=== PATIENT | male | born 1965 | race Caucasian/White ===

== ENCOUNTER 2017-01-09 20:19 | Emergency (ER) | payer OTHER ==
[~2017-01-09] VITALS: Ht 180.3 cm; Wt 85.0 kg
[~2017-01-09 20:19] MED LIST: AMOX875T3 PO; AMT50 PO; ATR25 PO; BSP15 PO; CARB1CAP10 PO; CARB1CAP11 PO; CLX20 PO; DIAZ-165 PO; ESCI10TA17 PO; HYDR-5688 PO; MELO15TA3 PO; NRN600 PO
[2017-01-09 20:29] VITALS: Ht 180.3 cm; Wt 85.0 kg
[2017-01-09] MEDS ORDERED: SODIUM CHLORIDE 0.9% 1000ML 1,000 ML IV SCH (20:43)
--- NOTE | 2017-01-09 21:00 | DIAGNOSTIC IMAGING REPORT ---
CT SCAN OF THE BRAIN WITHOUT IV CONTRAST CLINICAL HISTORY: Strokelike symptoms. COMPARISON STUDY: CT of the brain dated 03/23/2009. TECHNIQUE: Unenhanced axial CT scan of the brain is performed from the vertex to the skull base. A dose lowering technique was utilized adhering to the principles of ALARA. CT DOSE: 614.27 mGy.cm FINDINGS: Brain parenchyma: The brain parenchyma is normal in appearance. There is no hemorrhage, mass effect, or evidence of acute territorial ischemia by CT criteria. Mccurdy-white matter is preserved. No extra-axial fluid collection is seen. Ventricles, sulci, cisterns: Normal in configuration. Intracranial vasculature: The visualized intracranial vasculature at the skull base is normal in appearance. Calvarium: Unremarkable. Sinuses and mastoids: Trace mucosal thickening is seen in the maxillary antra. The remaining paranasal sinuses are clear. The mastoid air cells are well pneumatized. Orbits: The bony orbits are grossly intact. IMPRESSION: There is no hemorrhage, mass effect, or evidence of acute territorial ischemia by CT criteria. Electronically signed by: Alf Cabrales M.D. 01/09/2017 8:58 PM Dictated Date/Time: 01/09/2017 8:56 PM
[2017-01-09] MEDS ORDERED: IBUP600T44 PO (21:04)
[2017-01-09] MEDS ORDERED: PRLSR20 PO (21:04)
[2017-01-09] MEDS ORDERED: ONDANSETRON INJ 2 MG/ML 2 ML VIAL ONE (21:08)
[2017-01-09 21:15] VITALS: O2SAT 97
[2017-01-09 21:22] LABS: BASO % 0.4 %; BASO ABS # 0.07 K/uL (0-0.2); COMPLETE YES; EOS % 0.7 %; HEMATOCRIT 47.2 % (42-52); IG% 0.3 %; LYMPH % 7.6 %; MEAN CELL VOLUME 93.7 fL (80-100); MEAN CORPUSCULAR HEMOGLOBIN 34.3 pg (25-34); MEAN CORPUSCULAR HGB CONC 36.7 g/dl (32-36); MEAN PLATELET VOLUME 9.9 fL (7.4-10.4); MONO % 3.4 %; NEUT % 87.6 %; PLATELET COUNT 339 K/uL (130-400); RED BLOOD COUNT 5.04 M/uL (4.7-6.1); WHITE BLOOD COUNT 18.42 K/uL (4.8-10.8)
--- NOTE | 2017-01-09 21:27 | DIAGNOSTIC IMAGING REPORT ---
SINGLE VIEW CHEST CLINICAL HISTORY: Strokelike symptoms. FINDINGS: An AP, portable, upright chest radiograph is compared to study dated 03/23/2009 and correlated with chest CT dated 03/24/2009. The examination is degraded by portable technique and patient rotation. The heart is top normal for projection. The pulmonary vasculature is noncongested. Nonspecific interstitial thickening and mild elevation of right hemidiaphragm are similar to previous. No airspace consolidation, large pleural effusion, or pneumothorax is seen. The bony thorax is grossly intact. IMPRESSION: No acute cardiopulmonary abnormality. Electronically signed by: Alf Cabrales M.D. 01/09/2017 9:26 PM Dictated Date/Time: 01/09/2017 9:25 PM
[2017-01-09 21:35] LABS: INR 1.1 (0.9-1.1); PROTHROMBIN TIME (PATIENT) 11.4 SECONDS (9.0-12.0)
[2017-01-09 21:44] LABS: BLOOD UREA NITROGEN 8 mg/dl (7-18); BUN/CREATININE RATIO 8.1 (10-20); CALCIUM 9.6 mg/dl (8.5-10.1); CARBON DIOXIDE 23 mmol/L (21-32); CHLORIDE 103 mmol/L (98-107); CREATININE 1.03 mg/dl (0.60-1.40); GLUCOSE 162 mg/dl (70-99); POTASSIUM 3.6 mmol/L (3.5-5.1); SODIUM 136 mmol/L (136-145)
[2017-01-09 21:49] LABS: CKMB/CK RATIO 1.1 (0-3.0)
[2017-01-09] MEDS ORDERED: SODIUM CHLORIDE 0.9% 1000ML 1,000 ML IV STA (22:19)
[2017-01-09 22:25] LABS: ALKALINE PHOSPHATASE 122 U/L (45-117); ALT/SGPT 25 U/L (12-78); AST/SGOT 22 U/L (15-37)
[2017-01-09 22:37] VITALS: TEMP 36.4
[2017-01-09] MEDS ORDERED: ASPIRIN 81 MG CHEW PO STA (22:45)
[2017-01-09] MEDS ORDERED: OPTIRAY 320 IV PRN (23:00)
--- NOTE | 2017-01-10 00:01 | EMERGENCY ROOM VISIT NOTE ---
History Report prepared by Alejandraibkarol: Leigh Sheldon Under the Supervision of: Dr. Vasquez Steele D.O. First contact with patient: 20:34 Chief Complaint: STROKE SYMPTOMS Stated Complaint: POSSIBLE STROKE History of Present Illness The patient is a 51 year old male who presents to the Emergency Room with complaints of possible stroke symptoms that started at 2114 this evening. He is accompanied by several family members. He admits to a history of previous TIA' s. His son reports he called family this evening and told them he was unable to speak correctly or stand and felt dizzy. His family then called an ambulance. The patients girlfriend reports he recently underwent dental surgery 2 days ago , and was prescribed an antibiotic and pain medicine. The patient currently complains of nausea, a headache and neck pain. He is vomiting on exam. He denies change in vision, fevers, chest pain, shortness of breath, diarrhea, pain with urination, and melena. Patient has no other complaints. He denies any weakness. He denies any paresthesias. Source of History: patient Onset: 2114 this evening Position: other (global) Timing: other (persistent) Associated Symptoms: + headache, + neck pain, + nausea, + vomiting, No fevers, No chest pain, No SOB, No melena, No diarrhea, No urinary symptoms, No weakness, No numbness (no parasthesias) Review of Systems See HPI for pertinent positives & negatives. A total of 10 systems reviewed and were otherwise negative. Past Medical & Surgical Medical Problems: (1) TIA (transient ischemic attack) Social History Smoking Status: Current Every Day Smoker Alcohol Use: occasionally Drug Use: none Marital Status: , in relationship Housing Status: lives with family Occupation Status: employed Current/Historical Medications Scheduled Amoxicillin (Amoxil), 1 TAB PO BID Omeprazole (Prilosec), 20 MG PO DAILY Scheduled PRN Hydrocodone/Acetaminophen 5MG/325MG ([place] 5MG/325MG), 1-2 TABLETS PO Q6 PRN for Pain Ibuprofen (Motrin), 600 MG PO Q6H PRN for Pain Allergies Coded Allergies: No Known Allergies (Verified , `, 01/09/17) Physical Exam Vital Signs Date Time Temp Pulse Resp B/P (MAP) Pulse Ox O2 Delivery O2 Flow Rate FiO2 01/10/17 00:32 56 20 147/88 96 Room Air 01/10/17 00:05 52 16 156/88 97 Room Air 01/09/17 23:02 58 16 150/86 98 Room Air 01/09/17 22:50 46 20 164/74 95 Room Air 01/09/17 22:37 36.4 46 20 133/74 100 Room Air 01/09/17 22:16 45 20 143/70 97 Room Air 01/09/17 21:57 48 18 127/84 98 Room Air 01/09/17 21:41 47 20 161/92 98 Room Air 01/09/17 21:19 52 20 122/66 100 Room Air 01/09/17 21:15 97 Room Air 01/09/17 21:02 44 01/09/17 20:29 36.4 52 20 124/70 99 Room Air Physical Exam GENERAL: Sitting up in bed, alert, diaphoretic, pale, well nourished, no distress, non-toxic EYE EXAM: normal conjunctiva. PERRL and EOM's intact. OROPHARYNX: no exudate, no erythema, lips, buccal mucosa, and tongue normal and mucous membranes are moist NECK: supple, no nuchal rigidity, no adenopathy, non-tender LUNGS: Clear to auscultation. Normal chest wall mechanics HEART: no murmurs, S1 normal and S2 normal ABDOMEN: abdomen soft, non-tender, normo-active bowel sounds, no masses, no rebound or guarding. BACK: Back is symmetrical on inspection and there is no deformity, no midline tenderness, no CVA tenderness. SKIN: no rashes and no bruising UPPER EXTREMITIES: upper extremities are grossly normal. LOWER EXTREMITIES: No pitting edema. NEURO EXAM: Faint slurred speech. No weakness in the upper extremities. No weakness in the lower extremities. No drift. Finger to nose is intact. Medical Decision & Procedures ER Provider Diagnostic Interpretation: Radiology results as stated below per my review and the radiologist's interpretation: SINGLE VIEW CHEST CLINICAL HISTORY: Strokelike symptoms. FINDINGS: An AP, portable, upright chest radiograph is compared to study dated 03/23/2009 and correlated with chest CT dated 03/24/2009. The examination is degraded by portable technique and patient rotation. The heart is top normal for projection. The pulmonary vasculature is noncongested. Nonspecific interstitial thickening and mild elevation of right hemidiaphragm are similar to previous. No airspace consolidation, large pleural effusion, or pneumothorax is seen. The bony thorax is grossly intact. IMPRESSION: No acute cardiopulmonary abnormality. Electronically signed by: Alf Cabrales M.D. 01/09/2017 9:[address] SCAN OF THE BRAIN WITHOUT IV CONTRAST CLINICAL HISTORY: Strokelike symptoms. COMPARISON STUDY: CT of the brain dated 03/23/2009. TECHNIQUE: Unenhanced axial CT scan of the brain is performed from the vertex to the skull base. A dose lowering technique was utilized adhering to the principles of ALARA. CT DOSE: 614.27 mGy.cm FINDINGS: Brain parenchyma: The brain parenchyma is normal in appearance. There is no hemorrhage, mass effect, or evidence of acute territorial ischemia by CT criteria. Mccurdy-white matter is preserved. No extra-axial fluid collection is seen. Ventricles, sulci, cisterns: Normal in configuration. Intracranial vasculature: The visualized intracranial vasculature at the skull base is normal in appearance. Calvarium: Unremarkable. Sinuses and mastoids: Trace mucosal thickening is seen in the maxillary antra. The remaining paranasal sinuses are clear. The mastoid air cells are well pneumatized. Orbits: The bony orbits are grossly intact. IMPRESSION: There is no hemorrhage, mass effect, or evidence of acute territorial ischemia by CT criteria. Electronically signed by: Alf Cabrales M.D. 01/09/2017 8:58 PM CTA HEAD: Intracranial segment of left vertebral artery contains contrast however is mildly narrowed and irregular. Filling of distal left vertebral artery is likely via retrograde flow. Please refer to CTA neck for further details regarding left vertebral artery. Left PICA is not visualized which may be due to small size although occlusion cannot be excluded. If there is clinical concern for acute infarct, MRI can be considered for further evaluation. Remainder of visualized intracranial arteries appear patent. No evidence of hemodynamically significant stenosis, occlusion or aneurysm involving the visualized intracranial arteries. Intracranial venous structures appear patent. 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 There is reconstitution of intracranial segment of the left vertebral artery which is likely via retrograde flow. Findings are suspicious for left vertebral artery dissection although atheromatous occlusion is not excluded. Recommend clinical correlation. Patent common carotid, internal carotid and right vertebral arteries in the neck. Degenerative changes of the cervical spine. Radiologist: Tiffany Reynolds MD Study ready at 23:30 and initial results transmitted at 00:15 Critical Value Communications Clear Time Type Notes 01/10/17 00:10 Call Doctor Regarding Above results, called Dr. Steele on 01/10 00:09 Laboratory Results 01/09/17 21:00 Red Blood Count 5.04, Mean Corpuscular Volume 93.7, Mean Corpuscular Hemoglobin 34.3, Mean Corpuscular Hemoglobin Concent 36.7, Mean Platelet Volume 9.9, Neutrophils (%) (Auto) 87.6, Lymphocytes (%) (Auto) 7.6, Monocytes (%) (Auto) 3.4, Eosinophils (%) (Auto) 0.7, Basophils (%) (Auto) 0.4, Neutrophils # (Auto) 16.14, Lymphocytes # (Auto) 1.40, Monocytes # (Auto) 0.63, Eosinophils # (Auto) 0.13, Basophils # (Auto) 0.07 01/09/17 21:00 Test 01/09/17 21:00 01/09/17 21:16 01/09/17 21:21 01/09/17 21:30 White Blood Count 18.42 K/uL (4.8-10.8) Red Blood Count 5.04 M/uL (4.7-6.1) Hemoglobin 17.3 g/dL (14.0-18.0) Hematocrit 47.2 % (42-52) Mean Corpuscular Volume 93.7 fL (80-100) Mean Corpuscular Hemoglobin 34.3 pg (25-34) Mean Corpuscular Hemoglobin Concent 36.7 g/dl (32-36) Platelet Count 339 K/uL (130-400) Mean Platelet Volume 9.9 fL (7.4-10.4) Neutrophils (%) (Auto) 87.6 % Lymphocytes (%) (Auto) 7.6 % Monocytes (%) (Auto) 3.4 % Eosinophils (%) (Auto) 0.7 % Basophils (%) (Auto) 0.4 % Neutrophils # (Auto) 16.14 K/uL (1.4-6.5) Lymphocytes # (Auto) 1.40 K/uL (1.2-3.4) Monocytes # (Auto) 0.63 K/uL (0.11-0.59) Eosinophils # (Auto) 0.13 K/uL (0-0.5) Basophils # (Auto) 0.07 K/uL (0-0.2) RDW Standard Deviation 45.0 fL (36.4-46.3) RDW Coefficient of Variation 13.1 % (11.5-14.5) Immature Granulocyte % (Auto) 0.3 % Immature Granulocyte # (Auto) 0.05 K/uL (0.00-0.02) Prothrombin Time 11.4 SECONDS (9.0-12.0) Prothromb Time International Ratio 1.1 (0.9-1.1) Anion Gap 9.0 mmol/L (3-11) Est Creatinine Clear Calc Drug Dose 90.3 ml/min Estimated GFR () 97.0 Estimated GFR (Non- 83.7 BUN/Creatinine Ratio 8.1 (10-20) Bedside Glucose 154 mg/dl (70-99) Calcium Level 9.6 mg/dl (8.5-10.1) Magnesium Level 2.0 mg/dl (1.8-2.4) Total Creatine Kinase 87 U/L (39-308) Creatine Kinase MB 1.0 ng/ml (0.5-3.6) Creatine Kinase MB Ratio 1.1 (0-3.0) Troponin I < 0.015 ng/ml (0-0.045) Bedside Prothrombin Time INR 1.0 (0.9-1.1) Total Bilirubin 0.6 mg/dl (0.2-1) Direct Bilirubin < 0.1 mg/dl (0-0.2) Aspartate Amino Transf (AST/SGOT) 22 U/L (15-37) Alanine Aminotransferase (ALT/SGPT) 25 U/L (12-78) Alkaline Phosphatase 122 U/L (45-117) Total Protein 7.7 gm/dl (6.4-8.2) Albumin 3.9 gm/dl (3.4-5.0) Lipase 57 U/L (73-393) Ethyl Alcohol mg/dL < 3.0 mg/dl (0-3) Test 01/10/17 00:15 01/10/17 00:25 Activated Partial Thromboplast Time 27.1 SECONDS (21.0-31.0) Partial Thromboplastin Ratio 1.0 Lactic Acid Level 1.5 mmol/L (0.4-2.0) Thyroid Stimulating Hormone (TSH) 0.218 uIu/ml (0.300-4.500) Urine Color YELLOW Urine Appearance CLEAR (CLEAR) Urine pH >= 9.0 (4.5-7.5) Urine Specific [place] 1.033 (1.000-1.030) Urine Protein NEG (NEG) Urine Glucose (UA) TRACE (NEG) Urine Ketones 1+ (NEG) Urine Occult Blood NEG (NEG) Urine Nitrite NEG (NEG) Urine Bilirubin NEG (NEG) Urine Urobilinogen NEG (NEG) Urine Leukocyte Esterase NEG (NEG) Urine WBC (Auto) 0 /hpf (0-5) Urine RBC (Auto) 0-4 /hpf (0-4) Urine Hyaline Casts (Auto) 1-5 /lpf (0-5) Urine Epithelial Cells (Auto) 10-20 /lpf (0-5) Urine Bacteria (Auto) NEG (NEG) Urine Opiates Screen POS (NEG) Urine Methadone, Qualitative NEG (NEG) Urine Barbiturates NEG (NEG) Urine Phencyclidine (PCP) Level NEG (NEG) Ur Amphetamine/Methamphetamine NEG (NEG) MDMA (Ecstasy) Screen NEG (NEG) Urine Benzodiazepines Screen NEG (NEG) Urine Cocaine Metabolite NEG (NEG) Urine Marijuana (THC) POS (NEG) Laboratory results per my review. Medications Administered Medications (Trade) Dose Ordered Sig/Kody Route Start Time Stop Time Status Last Admin Dose Admin Sodium Chloride 1,000 ml @ 50 mls/hr Q20H IV 01/09/17 20:43 02/08/17 20:42 01/09/17 20:43 50 MLS/HR Ondansetron HCl (Zofran Inj) 4 mg STK-MED ONCE .ROUTE 01/09/17 21:08 01/09/17 21:09 DC 01/09/17 21:08 4 MG Sodium Chloride 1,000 ml @ 999 mls/hr Q1H1M STAT IV 01/09/17 22:19 01/09/17 23:19 DC 01/09/17 22:19 999 MLS/HR Aspirin (Aspirin Chew) 324 mg NOW STAT PO 01/09/17 22:45 01/09/17 22:47 DC 01/09/17 23:30 324 MG Piperacillin Sod/ Tazobactam Sod (Zosyn Iv) 4.5 gm NOW STAT IV 01/10/17 00:24 01/10/17 00:25 DC 01/10/17 00:42 4.5 GM Ondansetron HCl (Zofran Inj) 4 mg STK-MED ONCE .ROUTE 01/10/17 00:27 01/10/17 00:28 DC 01/10/17 00:31 4 MG ECG Indication: weakness Rate (beats per minute): 47 Rhythm: sinus bradycardia Findings: other (normal axis) ED Course ED COURSE: Vital signs were reviewed and showed the patient is hypertensive and bradycardic. The patients medical record was reviewed The above diagnostic studies were performed and reviewed. ED treatments and interventions as stated above. 2035: The patient was evaluated in room C1. A complete history and physical examination was performed. 2042: NSS 1000 ml @ 50 mls/hr IV. 2107: Zofran 4 mg IV. 2149: I reevaluated the patient. He is complaining of tingling in his left arm and left leg. He has experienced no weakness in his extremities. He is slurring his words and states he feels tired. He is neurovascularly intact. 2157: I discussed the patients case with Dr. Murrieta, [facility]. The patient will be further evaluated. 9: NSS 1000 ml @ 999 mls/hr IV. 2245: Aspirin 324 mg PO. 2245: I spoke with Dr. Murrieta again. He recommends a CTA, if anything abnormal is seen, transfer to [facility]. 2305: I reevaluated the patient. He is resting comfortably. I discussed my findings with the patient and he understands and agrees with the treatment plan. 2338: I discussed the patients case with Dr. Ambrose, [facility]. The patient will be further evaluated. 0005: [facility]iology informed me of abnormal findings on the patient's CTA of the Head and Neck. 0012: I discussed the patients case with Dr. Murrieta again. He has accepted the patient as a transfer to [facility] via life flight. The patient will be further evaluated. Based on the patients age, coexisting illnesses, exam and lab findings the decision to treat as an inpatient was made. The patient remained stable while under my care. The patient will be evaluated for further management. Medical Decision Differential Diagnosis includes but is not limited to ischemic Stroke, hemorrhagic stroke, bells palsy, mass, neoplasm, migraine headache, seizure, subarachnoid hemorrhage, TIA, and transient global amnesia. Patient is a 51-year-old male who presents to ER for headache which has been present and unchanged for the past month associated with dizziness which is positional and vomiting. Patient denies any weakness. He does have a history of a TIA. On my exam he has faint slurred speech but is otherwise neurologically completely intact. He is taken immediately for a CT. This was unremarkable. He was bradycardic as well which wax and wanes and felt was secondary to vasovagal. On reevaluation following CT he is complaining of paresthesias in the left upper and left lower extremity. At this time a stroke alert was called. There was no deficit. He was evaluated by neurology. They do not believe that this is a stroke at this time. They did recommend CTAs. He was given aspirin fluids. Patient was discussed with internal medicine. He remained stable. He did have a leukocytosis and a mild lactic acidosis. No clear signs of infection on urine or chest x-ray. His abdomen is fairly benign. Patient was updated regards to his findings and internal medicine was consulted prior to the result of CTAs. CTA showed possible left vertebral dissection. Rediscussed the case with [facility] neurology. They recommended no anticoagulation. Recommended transfer via [facility]. [facility] was contacted patient was transferred to [facility] following updating the patient and family. Medication Reconcilliation Current Medication List: was personally reviewed by me Blood Pressure Screening Patient's blood pressure: Elevated blood pressure Blood pressure disposition: Referred to PCP Consults Time Called: 2154 Consulting Physician: Dr. Murrieta, [facility] Returned Call: [phone] I discussed the patients case with Dr. Murrieta, [facility]. The patient will be further evaluated. Additional Consults: Time Called: 2324 [facility] Call: [phone] Additional Comments: [facility] The patient will be further evaluated. Impression Primary Impression: Weakness Additional Impressions: Paresthesia Leukocytosis Bradycardia Scribe Attestation The scribe's documentation has been prepared under my direction and personally reviewed by me in its entirety. I confirm that the note above accurately reflects all work, treatment, procedures, and medical decision making performed by me. Departure Information Dispostion Transfer Acute Care Facility (The patient is being transferred via life flight to [facility]) Referrals No Doctor, Assigned (PCP) Patient Instructions My [facility] Problem Qualifiers
[2017-01-10] MEDS ORDERED: PIPERACILLIN/TAZOBACTAM 4.5 GM/100ML D5W IV STA (00:24)
[2017-01-10] MEDS ORDERED: ONDANSETRON INJ 2 MG/ML 2 ML VIAL ONE (00:27)
[2017-01-10 00:42] LABS: MANUAL MICROSCOPIC REQUIRED? NO; REVIEW REQ? NO; URINE APPEARANCE CLEAR (CLEAR); URINE BILIRUBIN NEG (NEG); URINE COLOR YELLOW; URINE NITRITE NEG (NEG); URINE PH >= 9.0 (4.5-7.5); URINE SPECIFIC GRAVITY 1.033 (1.000-1.030); UROBILINOGEN NEG (NEG); ZZUR CULT IF INDIC CLEAN CATCH NO
[2017-01-10 00:59] LABS: BENZODIAZEPINE, URINE NEG (NEG); COCAINE,URINE NEG (NEG); PHENCYCLIDINE, URINE NEG (NEG)
[2017-01-10 01:15] VITALS: BP 123/75; PULSE 66; O2SAT 100
--- NOTE | 2017-01-10 06:44 | DIAGNOSTIC IMAGING REPORT ---
CT HEAD ANGIO WITH CONTRAST CLINICAL HISTORY: Acute stroke like symptoms TECHNIQUE: CT angiography of the head was performed in a dynamic helical fashion during intravenous administration of 120 cc of Optiray 320. A dose lowering technique was utilized adhering to the principles of ALARA. MIP imaging was performed CT DOSE: COMPARISON STUDY: Noncontrast head CT dated 01/09/2017 FINDINGS: There are no lesion suspicious for aneurysm. The dural venous sinuses appear patent. There are no pathologically enhancing masses. There is abnormal flow within the distal left vertebral artery. Please see radiographic report of the neck. IMPRESSION: 1. Abnormality distal left vertebral artery. Please see CT angiography report of the neck. 2. Otherwise unremarkable CT angiography of the head. No major intracranial branch occlusions. No evidence of aneurysm. No pathologically enhancing masses. Electronically signed by: Nando Loredo M.D. 01/10/2017 6:42 AM Dictated Date/Time: 01/10/2017 6:38 AM
--- NOTE | 2017-01-10 06:50 | DIAGNOSTIC IMAGING REPORT ---
CT NECK ANGIO WITH CONTRAST CLINICAL HISTORY: COMPARISON STUDY: No previous studies for comparison. TECHNIQUE: CT angiography was performed from the aortic arch to the skull base. MIP imaging was performed. The patient was scanned in a dynamic helical fashion during intravenous administration of 120 cc of Optiray 320. A dose lowering technique was utilized adhering to the principles of ALARA. CT DOSE: 486.89 mGy.cm Technique: CT angiogram of the carotid and vertebral arteries was obtained using intravenous contrast and 3-D reconstruction. NASCET criteria was utilized. Findings: There is mild narrowing of the proximal right internal carotid artery demonstrating a less than 20% stenosis. There is no evidence of dissection. There is minimal narrowing of the left internal carotid artery origin, demonstrating a less than 20% stenosis. There is no evidence of dissection There is a long segment left vertebral artery occlusion. There is reconstitution of the intracranial segment. There is abnormal enhancement of the left vertebral at its origin, demonstrating rim-like wall enhancement. The findings could be secondary to either a vertebral artery dissection or atherosclerotic occlusion. IMPRESSION: 1. No evidence of hemodynamic significant carotid stenosis 2. Long segment left vertebral artery occlusion with reconstitution of the intracranial segment. The findings could be secondary to either vertebral artery dissection or atherosclerotic occlusion. Electronically signed by: Nando Loredo M.D. 01/10/2017 6:49 AM Dictated Date/Time: 01/10/2017 6:43 AM
[2017-01-10 06:53] LABS: ESTIMATED AVERAGE GLUCOSE 97 mg/dl; HA1C FLAG Normal (Normal)
[2017-01-14 22:24] LABS: COD UR NEGATIVE NG/ML (CUTOFF=50); HYDROCOD UR 141 NG/ML (CUTOFF=50); HYDROMOR UR NEGATIVE NG/ML (CUTOFF=50); MORPHINE UR NEGATIVE NG/ML (CUTOFF=50); NORHYDROCODONE CONF UR 505 NG/ML (CUTOFF=50); OXYMORPH UR NEGATIVE NG/ML (CUTOFF=50)
== END 2017-01-10 01:16 | disposition short-term general hospital (02) ==
LOC: C.EDB 20:24 → C.EDA 01-10 01:16
DX: R53.1 Weakness (principal); R20.2 Paresthesia of skin; D72.829 Elevated white blood cell count, unspecified; R00.1 Bradycardia, unspecified; Z86.73 Personal history of transient ischemic attack (TIA), and cerebral infarction without residual deficits; F17.210 Nicotine dependence, cigarettes, uncomplicated; Z79.899 Other long term (current) drug therapy